=== PATIENT | male | born 1945 | race Caucasian/White ===

== ENCOUNTER 2017-09-20 12:46 | Emergency (ER) | payer OTHER ==
[~2017-09-20] VITALS: Ht 182.9 cm; Wt 104.5 kg
[2017-09-20 13:05] VITALS: BP 163/104
[2017-09-20] MEDS ORDERED: ibuprofen tablet 400 MG TABLET PO ONE (14:25)
[2017-09-20] MEDS ORDERED: HYDR-3965 PO (14:56)
== END 2017-09-20 15:05 | disposition home or self-care (01) ==
LOC: ER 12:47
DX: S76.112A Strain of left quadriceps muscle, fascia and tendon, initial encounter (principal); I10 Essential (primary) hypertension; E78.00 Pure hypercholesterolemia, unspecified; Z87.891 Personal history of nicotine dependence; Z88.1 Allergy status to other antibiotic agents; Z88.6 Allergy status to analgesic agent; W01.0XXA Fall on same level from slipping, tripping and stumbling without subsequent striking against object, initial encounter; Y93.89 Activity, other specified; Y92.89 Other specified places as the place of occurrence of the external cause; Y99.8 Other external cause status
CPT/HCPCS: 29505; 29515; 73564; 99284